=== PATIENT | male | born 1960 | race Caucasian/White ===

== ENCOUNTER → 2020-05-05 | Outpatient (CLI) | payer SELFPAY ==
[~2020-05-05] MED LIST: DOXYCYCLINE 10100 MG PO; OMNICEF 300MG300 MG PO
== END ==
LOC: ZCOL.LAB 15:58
DX: L97.509 Non-pressure chronic ulcer of other part of unspecified foot with unspecified severity (principal)

== ENCOUNTER → 2020-07-13 | Outpatient (CLI) | payer SELFPAY | LOC: ZCOL.LAB 23:52 | DX: E13.621 Other specified diabetes mellitus with foot ulcer (principal) ==